=== PATIENT | male | born 1970 | race Caucasian/White ===

== ENCOUNTER 2019-03-08 12:25 | Emergency (ER) | payer SELFPAY ==
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
[2019-03-08 13:05] VITALS: BP 119/81
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
== END 2019-03-08 13:28 | disposition home or self-care (01) ==
LOC: ED 12:25
DX: H72.92 Unspecified perforation of tympanic membrane, left ear (principal)
CPT/HCPCS: 70450